=== PATIENT | male | born 1970 | race Caucasian/White ===

== ENCOUNTER → 2021-07-19 14:02 | Outpatient (BNVA) | payer OTHER, SELFPAY | PROVIDERS: PCP Internal Medicine ==

== ENCOUNTER 2021-08-15 15:36 | Outpatient (REF) | payer OTHER, SELFPAY ==
--- NOTE | ~2021-08-15 | US_ITS ---
EXAMINATION: US RETROPERITONEAL LIMITED (RENAL ONLY) CLINICAL INFORMATION: Calculus of kidney. COMPARISON: X-ray abdomen KUB 11/26/2019 and 05/07/2019. Renal ultrasound 11/06/2019 and 04/17/2019. CT abdomen and pelvis 08/17/2019. TECHNIQUE: Real-time imaging of the kidneys. FINDINGS: RIGHT KIDNEY: 12.5 x 6.7 x 4.8 cm (SAG x AP x TRV). The kidney is normal in size, contour, and echogenicity. Renal cortical thickness is normal. There is a 3 mm stone in the midpole. No focal parenchymal lesions or hydronephrosis. LEFT KIDNEY: 13.0 x 6.8 x 5.7 cm (SAG x AP x TRV). The kidney is normal in size, contour, and echogenicity. Renal cortical thickness is normal. There are multiple stones in the lower pole, largest measuring 8 x 4 x 5 mm. There is question of mild calyceal dilatation in the lower pole. No renal mass. US/US renal BI IMPRESSION: Bilateral renal stones, left greater than right.
== END 2021-08-15 15:37 | disposition home or self-care (01) ==
LOC: HO.US 15:36
PROVIDERS: PCP Internal Medicine
DX: N20.0 Calculus of kidney (principal)
CPT/HCPCS: 76775

== ENCOUNTER 2021-12-22 14:21 | Outpatient (REF) | payer OTHER, SELFPAY ==
--- NOTE | ~2021-12-22 | US_ITS ---
EXAMINATION: US RETROPERITONEAL LIMITED (RENAL ONLY) CLINICAL INFORMATION: Calculus of kidney. COMPARISON: US retroperitoneal limited (renal only) 08/15/2021 and 11/06/2019. XR abdomen KUB 11/26/2019 and 05/07/2019. CT abdomen and pelvis without contrast 08/17/2019. TECHNIQUE: Real-time imaging of the kidneys. FINDINGS: RIGHT KIDNEY: 11.4 x 7.0 x 6.0 cm (SAG x AP x TRV). The kidney is normal in size, contour, and echogenicity. Renal cortical thickness is normal. No calculi or focal parenchymal lesions. No hydronephrosis. LEFT KIDNEY: 12.4 x 7.8 x 5.2 cm (SAG x AP x TRV). The kidney is normal in size, contour, and echogenicity. Renal cortical thickness is normal. No focal parenchymal lesions or hydronephrosis. Redemonstration of similar degree of fullness within a lower pole calyx. Redemonstration of at least 3 calculi in the lower pole, largest measuring up to 1.2 cm, not significantly changed. US/US renal BI IMPRESSION: Redemonstration of calculi in the lower pole of the left kidney with similar prominence of a lower pole calyx.
== END 2021-12-22 14:22 | disposition home or self-care (01) ==
LOC: HO.US 14:21
DX: N20.0 Calculus of kidney (principal)
CPT/HCPCS: 76775

== ENCOUNTER 2022-04-26 10:03 | Outpatient (REF) | payer OTHER, BC, SELFPAY | END 2022-04-26 10:04 | disposition home or self-care (01) | LOC: HO.LNP 10:03 | PROVIDERS: PCP Internal Medicine; Visit Provider Surgery | DX: L98.9 Disorder of the skin and subcutaneous tissue, unspecified (principal) | CPT/HCPCS: 11401; 88305 ==

== ENCOUNTER 2022-07-18 08:24 | Day surgery (SDC) | payer BC, SELFPAY ==
--- NOTE | 2022-07-14 12:00 | HO.ANESPROP2 ---
Documented by User: Cony Florentino NP 07/14/22 12:00 HPI - Anesthesia Eval Consult details Narrative: 51yo M for Colonoscopy [facility] Active Problems Active Problems: All Active Problems (Updated 07/14/22 @ 11:48 by Deena Aldana RN) Renal calculi (Acute) Skin lesion (Acute) Renal calculi (Acute) Past Medical History Medical History (Updated 07/14/22 @ 11:48 by Deena Aldana RN) Renal calculi S/P extracorporeal shock wave therapy Skin lesion Family History Family History Mother Ovarian cancer Surgical History Surgical History (Updated 07/14/22 @ 11:48 by Deena Aldana RN) H/O cystoscopy History of excision of lesion (~04/26/22) Social History Social History Alcohol intake: current Alcohol intake frequency: holidays/special occasions only Patient Tobacco Use Status: Never used Tobacco Use of substances other than those prescribed or required for medical reasons: No Are you DNR?: No Advance Directives: No Advance Directives Information Provided: Yes Advance Directives on File: No Meds Allergies Allergy/AdvReac Type Severity Reaction Status Date / Time dander Allergy Unknown Uncoded 07/14/22 11:50 dust mites Allergy Unknown Uncoded 07/14/22 11:50 hay fever Allergy Unknown Uncoded 07/14/22 11:50 Home Medications Medication Instructions Recorded Confirmed Last Taken Type pyridoxine (vitamin B6) 50 mg 1 tab DAILY 07/14/22 07/14/22 Unknown History tablet Exam Exam Date and Time: July 14, 2022 1200 Assessment and Plan Assessment Anesthesia Assessment: Chart Reviewed Documented by User: Roel Cabrera MD 07/18/22 15:52 PMFSH Past Medical History Medical History (Updated 07/14/22 @ 11:48 by Deena Aldana RN) Renal calculi S/P extracorporeal shock wave therapy Skin lesion Family History Family History Mother Ovarian cancer Family history of problems with anesthesia: No Surgical History Surgical History (Updated 07/14/22 @ 11:48 by Deena Aldana RN) H/O cystoscopy History of excision of lesion (~04/26/22) History of Problems with Anesthesia: No Social History Social History Alcohol intake: current Alcohol intake frequency: holidays/special occasions only Patient Tobacco Use Status: Never used Tobacco Use of substances other than those prescribed or required for medical reasons: No Are you DNR?: No Advance Directives: No Advance Directives Information Provided: Yes Advance Directives on File: No Meds Allergies Allergy/AdvReac Type Severity Reaction Status Date / Time dander Allergy Unknown Uncoded 07/14/22 11:50 dust mites Allergy Unknown Uncoded 07/14/22 11:50 hay fever Allergy Unknown Uncoded 07/14/22 11:50 Home Medications Medication Instructions Recorded Confirmed Last Taken Type pyridoxine (vitamin B6) 50 mg 1 tab DAILY 07/14/22 07/14/22 Unknown History tablet Exam Airway Mallampati Class: III TM Dist: >3cm Neck ROM: Full Loose/Missing/Broken Teeth: Yes (chipped front upper ) Heart: S1,S2 Lungs: b/l breath sounds Assessment and Plan Assessment Anesthesia Assessment: Anesthesia Plan Discussed Final Anesthetic Review Family History of Problems with Anesthesia: No History of Problems with Anesthesia: No NPO: Yes ASA Class: III Final Preanesthetic Review: Meds/Allgs Chart Reviewed, Consent Obtained/Reviewed and Anes Risks/Benef Reviewed Patient Risk: Intermediate Procedure Risk: Intermediate Anesthetic Plan Anesthetic Plan: MAC: Disposition: Standard PACU
[2022-07-18 08:33] VITALS: BMI 36.1
[2022-07-18 08:42] VITALS: BP 129/87; PULSE 98; RESP 18; TEMP 36.1; O2SAT 98
[2022-07-18] MEDS: Lactated Ringers 1,000 ML 100 ML IVCONT (08:48)
[2022-07-18 09:54] VITALS: BP 150/91; PULSE 100; RESP 16; TEMP 36.2; O2SAT 94
--- NOTE | 2022-07-18 09:54 | P.BOP_ITS ---
Brief Operative Note Date of Service: 07/18/22 Pre-op diagnosis: screening Post-op diagnosis: same Procedure: colonoscopy Surgeon: Gavino Platt Anesthesia: MAC Was an Proposal Manager Writer used for this Procedure?: No Estimated blood loss (mL): 0 Pathology: none sent Condition: stable Disposition: PACU
[2022-07-18 10:09] VITALS: BP 148/87; PULSE 93; RESP 16; TEMP 36.2; O2SAT 98
--- NOTE | 2022-07-18 10:39 | OP_ITS ---
SURGEON: Gavino Platt MD INDICATIONS: Colon cancer screening. PREOPERATIVE DIAGNOSIS: POSTOPERATIVE DIAGNOSIS: PROCEDURE PERFORMED: Colonoscopy to the terminal ileum. ESTIMATED BLOOD LOSS: COMPLICATIONS: ANESTHESIA: Monitored anesthesia care. ASSISTANTS: SPECIMENS: DESCRIPTION OF PROCEDURE: Date: 07/18/22. A History and Physical was performed. The risks and benefits of the procedure were explained to the patient. Informed consent was obtained. The patient was placed in the left lateral decubitus position. A digital rectal exam was performed and was found to be normal. The Olympus pediatric video colonoscope was introduced into the rectum and advanced to the cecum without difficulty. The cecum was identified by transillumination, palpation, and identification of the ileocecal valve. Examination was performed. The scope was removed. He tolerated the procedure well and was returned to the recovery area in stable condition. FINDINGS: The terminal ileum was normal. The visualized colonic mucosa was normal. The quality of prep was good. No polyps were identified. There were a few scattered diverticula seen in the colon. Retroflexed examination showed small internal hemorrhoids. IMPRESSION: Normal colonoscopy. RECOMMENDATIONS: 1. Follow up as needed. 2. Repeat colonoscopy is recommended in 10 years for average risk individuals. MD ESTRELLA Briceno/MAGGIE / [id number] MTDAnjelica
== END 2022-07-18 10:38 | disposition home or self-care (01) ==
PROVIDERS: PCP Internal Medicine; Visit Provider Internal Medicine Gastroenterology
PROC: 0DJD8ZZ Inspection of Lower Intestinal Tract, Via Natural or Artificial Opening Endoscopic (ICD-10-PCS; CPT 45378; principal; 2022-07-18 09:30)
DX: Z12.11 Encounter for screening for malignant neoplasm of colon (principal); K57.30 Diverticulosis of large intestine without perforation or abscess without bleeding; K64.8 Other hemorrhoids; Z87.442 Personal history of urinary calculi; Z79.899 Other long term (current) drug therapy
CPT/HCPCS: 45378

== ENCOUNTER 2022-08-08 15:49 | Outpatient (REF) | payer BC, SELFPAY ==
--- NOTE | ~2022-08-08 | XR_ITS ---
EXAMINATION: XR ABDOMEN KUB CLINICAL INDICATION: Calculus of kidney COMPARISON: Ultrasound abdomen TECHNIQUE: AP view of the abdomen. FINDINGS: There are several radiopaque density seen in lower pole left kidney largest density is 1.4 cm consistent calculi. There are clusters of small calcifications in the lowest part of the lower pole measuring 1.4 cm well. No radiopaque calculi seen in the right kidney. There is moderate stool in the colon. No gross bony abnormality seen. XR/XR KUB IMPRESSION: 1. Multiple radiopaque calculi lower pole left kidney largest measuring 1.4 cm. 2. There is moderate constipation.
== END 2022-08-08 15:50 | disposition home or self-care (01) ==
LOC: HO.XRAY 15:49
PROVIDERS: PCP Internal Medicine; Visit Provider Nurse Practitioner Family
DX: N20.0 Calculus of kidney (principal)
CPT/HCPCS: 74018

== ENCOUNTER 2022-08-18 15:34 | Outpatient (REF) | payer BC, SELFPAY ==
[2022-08-18 17:42] LABS: Urine Cytology See Pathology rpt
== END 2022-08-18 15:35 | disposition home or self-care (01) ==
LOC: HO.LAB 15:34
PROVIDERS: PCP Internal Medicine; Visit Provider Nurse Practitioner Family
DX: N20.0 Calculus of kidney (principal)
CPT/HCPCS: 88112

== ENCOUNTER 2022-09-25 11:46 | Day surgery (SDC) | payer BC, SELFPAY ==
[2022-09-21 09:14] VITALS: BMI 39.5
--- NOTE | 2022-09-22 13:25 | P.CONAN_ITS ---
Documented by User: Cony Florentino NP 09/22/22 13:26 HPI - Anesthesia Eval Consult details Narrative: 52yo M for Left Cystoscopy, Ureteroroscopy, Retro, Laser,poss stent s/p [place] 06/2022 with MAC PMFSH Active Problems Active Problems: All Active Problems (Updated 09/21/22 @ 09:09 by Neelam Woodward RN) Renal calculi (Acute) Skin lesion (Acute) Renal calculi (Acute) Past Medical History Medical History Renal calculi Skin lesion Family History Family History Mother Ovarian cancer Family history of problems with anesthesia: No Surgical History Surgical History H/O colonoscopy H/O cystoscopy History of excision of lesion (~04/26/22) Hx of lithotripsy History of Problems with Anesthesia: No Social History Social History Alcohol intake: current Alcohol intake frequency: holidays/special occasions only Patient Tobacco Use Status: Never used Tobacco Use of substances other than those prescribed or required for medical reasons: No Are you DNR?: No Advance Directives: No Advance Directives Information Provided: Yes Meds Allergies Allergy/AdvReac Type Severity Reaction Status Date / Time dander Allergy Unknown Uncoded 09/25/22 12:24 dust mites Allergy Unknown Uncoded 09/25/22 12:24 hay fever Allergy Unknown Uncoded 09/25/22 12:24 Exam Exam Date and Time: September 22, 2022 1325 Height,Weight and Vital Signs: Height 5 ft 8 in Weight 117.934 kg Assessment and Plan Assessment Anesthesia Assessment: Chart Reviewed Final Anesthetic Review Family History of Problems with Anesthesia: No History of Problems with Anesthesia: No Documented by User: Dary Celaya MD 09/25/22 13:51 PMFSH Past Medical History Medical History Renal calculi Skin lesion Family History Family History Mother Ovarian cancer Surgical History Surgical History H/O colonoscopy H/O cystoscopy History of excision of lesion (~04/26/22) Hx of lithotripsy Social History Social History Alcohol intake: current Alcohol intake frequency: holidays/special occasions only Patient Tobacco Use Status: Never used Tobacco Use of substances other than those prescribed or required for medical reasons: No Are you DNR?: No Advance Directives: No Advance Directives Information Provided: Yes Meds Allergies Allergy/AdvReac Type Severity Reaction Status Date / Time dander Allergy Unknown Uncoded 09/25/22 12:24 dust mites Allergy Unknown Uncoded 09/25/22 12:24 hay fever Allergy Unknown Uncoded 09/25/22 12:24 Exam Airway Mallampati Class: II TM Dist: >3cm Neck ROM: Full (Largeneck diameter) Heart: RR Lungs: CTA Assessment and Plan Final Anesthetic Review NPO: Yes ASA Class: III (Obesity) Final Preanesthetic Review: No Changes in Pt Med Stat, Meds/Allgs Chart Reviewed, Consent Obtained/Reviewed and Anes Risks/Benef Reviewed Patient Risk: Low Procedure Risk: Low Anesthetic Plan Anesthetic Plan: GA and MAC: Disposition: Standard PACU Documented by User: Funmi Naik MD 09/25/22 14:18 PMFSH Past Medical History Medical History Renal calculi Skin lesion Family History Family History Mother Ovarian cancer Surgical History Surgical History H/O colonoscopy H/O cystoscopy History of excision of lesion (~04/26/22) Hx of lithotripsy Social History Social History Alcohol intake: current Alcohol intake frequency: holidays/special occasions only Patient Tobacco Use Status: Never used Tobacco Use of substances other than those prescribed or required for medical reasons: No Are you DNR?: No Advance Directives: No Advance Directives Information Provided: Yes Meds Allergies Allergy/AdvReac Type Severity Reaction Status Date / Time dander Allergy Unknown Uncoded 09/25/22 12:24 dust mites Allergy Unknown Uncoded 09/25/22 12:24 hay fever Allergy Unknown Uncoded 09/25/22 12:24 Exam Airway Heart: RRR Assessment and Plan Final Anesthetic Review Patient Risk: Intermediate
[2022-09-25] VITALS (10 sets, daily range): BP systolic 116–151; BP diastolic 56–90; PULSE 72–87; RESP 8–18; TEMP 36.1–36.3; O2SAT 82–99
--- NOTE | ~2022-09-25 | FL_ITS ---
EXAMINATION: XR FLUOROSCOPY WITH IMAGES CLINICAL INFORMATION: Urinary tract calculi COMPARISON: KUB 08/08/2022 TECHNIQUE: Fluoroscopy Supervised By: Dr. Randell Dowd. Fluoroscopy Time: 38 seconds. Cumulative Dose: 26.3 mGy. Images: 2. FINDINGS: Final image demonstrates left ureteral stent overlying left renal fossa. No retention of contrast or extravasation. FL/FL guidance in OR IMPRESSION: Fluoroscopy for urologic procedures.
[2022-09-25] MEDS: Lactated Ringers 1,000 ML 100 ML IVCONT (12:41)
--- NOTE | 2022-09-25 14:21 | MHC.SHP ---
Pre-Procedural Eval Section A Date of Service: 09/25/22 The patient is an INPATIENT: No Changes since office visit: No Cold of Flu in the past 2 weeks, No New Medical Problems, No Changes in Medication and No Patient answered all questions The History & Physical has been completed within 30 days and I have reviewed it.: No Section B Chief Complaint: Calculus of kidney Relevant Family History (Specify if Yes): No Relevant Social History: None Present Medications: see Short Stay Collaborative assessment Medical History: Significant History History of Previous Operations: Relevant previous surgery/procedure and date(s) Allergies: Allergies Allergy/AdvReac Type Severity Reaction Status Date / Time dander Allergy Unknown Uncoded 09/25/22 12:24 dust mites Allergy Unknown Uncoded 09/25/22 12:24 hay fever Allergy Unknown Uncoded 09/25/22 12:24 Review of Systems Sugical H&P ROS: Negative: Constitution, Cardiovascular, Respiratory, Neurological, Psychiatric, Hem-Onc, Allergic/Immunologic, Gastrointestinal, Genitourinary, Musculoskeletal, Integumentary, Endocrine and Eyes/Ears/Nose/Throat Exam Surgical H&P Exam: Normal: HEENT, Normal: Heart, Normal: Lungs, Normal: Extremities, Normal: Abdomen, Normal: Skin and Normal: Neurological Plan Diagnosis/Plan: Unchanged (cystoscopy, left retrograde, ureteroscopy, laser, stent) I have reviewed the history and physical and performed a pertinent physical examination on my patient. No changes have occurred unless specified. Time Spent With Patient Time: Total time managing care of this patient today ____ minutes.
--- NOTE | 2022-09-25 16:04 | P.OP_ITS ---
Operative Note Operative Note Date of Service: 09/25/22 Narrative: PreOperative Diagnosis: left renal stones Post Operative Diagnosis: left renal stones Procedure: - cystoscopy, left retrograde - left dilatation of ureteric orifice under fluoroscopy - left ureteroscopy, laser lithotripsy, stone basketing - Modified 22 under% longer than typical - left stent placement Surgeon: Dr Randell Dowd Anesthesia: General Indications for procedure: multiple left renal stones with cluster 1.5 cm in lower pole and secondary areas. Flank pain left side. Procedure: After informed consent was verified patient was brought to the operating placed in supine position. Anesthesia was administered per protocol. Patient was placed in modified dorsal lithotomy position and prepped and draped in a sterile fashion. Safety pause time-out and side of surgery confirmed. Antibiotics confirmed. 22 Nepalese cystoscope was inserted per urethra. Bladder was normal in its entirety. Both ureteric orifices were in normal position. The left ureteric orifice was cannulated and a retrograde examination was performed. filling defects seen in left lower pole. A Sensor guidewire was placed up to the level of the renal pelvis under fluoroscopy. The rigid cystoscope was removed and the inner cannula of ureteric access sheath was used under fluoroscopy to dilate the ureteric orifice. The ureteric access sheath was placed and the inner cannula with access wire removed. The digital flexible ureteral scope was placed. laser of stone occurred. Stone in lower pole was broken into pieces. Primarily dusting. Switching to hammer function. Using a 0 tip basket large chunks were moved and placed in the upper pole. The remnant stone was broken further. It extended in the lower pole split between 2 papillary bodies. Stone was also imbedded into tissue. This took approximately 60 minutes to laser which is 100% longer than typical. We and changed between laser and 0 tip basket. Fragments were removed. After the stone been completely cleared from the left lower pole we went the upper pole and broke the stone pieces up the small fragments. These were also basketed. At the completion of the stone procedure a Sensor wire was placed back into the renal pelvis. The rigid cystoscope was backloaded over the wire and advanced into the bladder. A 6 Nepalese by 28 cm double-J stent was placed into the renal pelvis and bladder under a combination of fluoroscopy and direct visualization. The bladder was emptied. The patient tolerated the procedure well and was extubated in the operating room, and transferred in stable condition to the recovery area. Pathology: Stones Drains: double-J stent
[2022-09-25] MEDS: ondansetron HCL 4 MG/2 ML VIAL IVPUSH (16:15)
[2022-09-25] MEDS: Acetaminophen 1,000 MG/100 ML PIGGYBACK 400 MG IV (16:15)
[2022-09-25] MEDS: Phenazopyridine HCL 100 MG TABLET PO (17:15)
[2022-09-29 23:57] LABS: Stone Source LEFT RENAL STONE
== END 2022-09-25 17:45 | disposition home or self-care (01) ==
PROVIDERS: PCP Internal Medicine; Visit Provider Urology
PROC: (CPT 52356; principal; 2022-09-25 14:10)
DX: N20.0 Calculus of kidney (principal); Z87.442 Personal history of urinary calculi; K59.00 Constipation, unspecified; Z79.899 Other long term (current) drug therapy
CPT/HCPCS: 52356; 52352; 82365; 88300; C1758; C1769; C2617; J0131; J1100; J1885; J1956; J2250; J2370; J2405; J3010; Q9967

== ENCOUNTER → 2022-10-03 12:34 | Outpatient (BNVA) | payer BC, SELFPAY | PROVIDERS: PCP Internal Medicine; Visit Provider Urology | DX: Z13.89 Encounter for screening for other disorder (principal) ==

== ENCOUNTER 2022-11-20 09:43 | Day surgery (SDC) | payer BC, SELFPAY ==
--- NOTE | 2022-11-17 10:05 | HO.ANESPROP2 ---
Documented by User: Cony Florentino NP 11/17/22 10:05 HPI - Anesthesia Eval Consult details Narrative: 52yo M for Left Cystoscopy, Ureteroroscopy, Retro, Laser, poss stent exchange s/p cysto, etc 09/2022 GA-LMA 5 PMFSH Active Problems Active Problems: All Active Problems (Updated 10/25/22 @ 09:28 by Alex Tucker MD) Renal calculi (Acute) Hordeolum externum left eye, unspecified eyelid (Acute) Skin lesion (Acute) Renal calculi (Acute) Past Medical History Medical History Renal calculi Skin lesion Family History Family History Mother Ovarian cancer Family history of problems with anesthesia: No Surgical History Surgical History H/O colonoscopy H/O cystoscopy History of excision of lesion (~04/26/22) Hx of lithotripsy History of Problems with Anesthesia: No Social History Social History Alcohol intake: current Alcohol intake frequency: holidays/special occasions only Patient Tobacco Use Status: Never used Tobacco Use of substances other than those prescribed or required for medical reasons: No Are you DNR?: No Advance Directives: No Advance Directives Information Provided: Yes Meds Allergies Allergy/AdvReac Type Severity Reaction Status Date / Time dander Allergy Runny Nose Uncoded 11/20/22 11:02 dust mites Allergy Runny Nose Uncoded 11/20/22 11:02 hay fever Allergy Runny Nose Uncoded 11/20/22 11:02 Home Medications Medication Instructions Recorded Confirmed Last Taken Type Vitamin D3 PO DAILY 11/20/22 Unknown History magnesium glycinate 100 mg tablet 100 mg PO DAILY 11/20/22 11/20/22 Unknown History pyridoxine (vitamin B6) 50 mg 50 mg PO DAILY 11/20/22 11/20/22 Unknown History tablet Exam Exam Date and Time: November 17, 2022 1005 Assessment and Plan Assessment Anesthesia Assessment: Chart Reviewed Final Anesthetic Review Family History of Problems with Anesthesia: No History of Problems with Anesthesia: No Documented by User: Alee Foley MD 11/20/22 14:32 PMFSH Past Medical History Medical History Renal calculi Skin lesion Family History Family History Mother Ovarian cancer Surgical History Surgical History H/O colonoscopy H/O cystoscopy History of excision of lesion (~04/26/22) Hx of lithotripsy Social History Social History Alcohol intake: current Alcohol intake frequency: holidays/special occasions only Patient Tobacco Use Status: Never used Tobacco Use of substances other than those prescribed or required for medical reasons: No Are you DNR?: No Advance Directives: No Advance Directives Information Provided: Yes Meds Allergies Allergy/AdvReac Type Severity Reaction Status Date / Time dander Allergy Runny Nose Uncoded 11/20/22 11:02 dust mites Allergy Runny Nose Uncoded 11/20/22 11:02 hay fever Allergy Runny Nose Uncoded 11/20/22 11:02 Home Medications Medication Instructions Recorded Confirmed Last Taken Type Vitamin D3 PO DAILY 11/20/22 Unknown History magnesium glycinate 100 mg tablet 100 mg PO DAILY 11/20/22 11/20/22 Unknown History pyridoxine (vitamin B6) 50 mg 50 mg PO DAILY 11/20/22 11/20/22 Unknown History tablet Exam Airway Mallampati Class: III TM Dist: >3cm Neck ROM: Full Heart: rrr Lungs: cta Assessment and Plan Final Anesthetic Review Final Preanesthetic Review: No Changes in Pt Med Stat, Meds/Allgs Chart Reviewed, Consent Obtained/Reviewed and Anes Risks/Benef Reviewed Patient Risk: Intermediate Procedure Risk: Low Anesthetic Plan Anesthetic Plan: GA Disposition: Standard PACU
[2022-11-20] VITALS (7 sets, daily range): BP systolic 98–151; BP diastolic 56–93; PULSE 70–94; RESP 15–18; TEMP 36.2–36.9; O2SAT 96–97; BMI 36.5
--- NOTE | ~2022-11-20 | FL_ITS ---
EXAMINATION: XR FLUOROSCOPY WITH IMAGES CLINICAL INFORMATION: Urinary tract calculi COMPARISON: KUB 08/08/2022 TECHNIQUE: Fluoroscopy Supervised By: Dr. Randell Dowd. Fluoroscopy Time: 7 seconds. Cumulative Dose: 3.98 mGy. Images: 2. FINDINGS: There are calculi again seen overlying the left renal fossa. Ureteral stent is seen overlying the left urinary tract. FL/FL guidance in OR IMPRESSION: Fluoroscopy for urologic procedures.
[2022-11-20] MEDS: Lactated Ringers 1,000 ML 100 ML IVCONT (11:33)
--- NOTE | 2022-11-20 14:29 | MHC.SHP ---
Pre-Procedural Eval Section A Date of Service: 11/20/22 The patient is an INPATIENT: No Changes since office visit: No Cold of Flu in the past 2 weeks, No New Medical Problems, No Changes in Medication and No Patient answered all questions The History & Physical has been completed within 30 days and I have reviewed it.: Yes Section B Chief Complaint: Calculus of kidney Details of Present Illness: Presents for removal of left stent with cystoscopy, ureteroscopy, possible laser Present Medications: see Short Stay Collaborative assessment Medical History: No relevant PMH History of Previous Operations: Relevant previous surgery/procedure and date(s) Allergies: Allergies Allergy/AdvReac Type Severity Reaction Status Date / Time dander Allergy Runny Nose Uncoded 11/20/22 11:02 dust mites Allergy Runny Nose Uncoded 11/20/22 11:02 hay fever Allergy Runny Nose Uncoded 11/20/22 11:02 Review of Systems Sugical H&P ROS: Negative: Constitution, Cardiovascular, Respiratory, Neurological, Psychiatric, Hem-Onc, Allergic/Immunologic, Gastrointestinal, Genitourinary, Musculoskeletal, Integumentary, Endocrine and Eyes/Ears/Nose/Throat Exam Surgical H&P Exam: Normal: HEENT, Normal: Heart, Normal: Lungs, Normal: Extremities, Normal: Abdomen, Normal: Skin and Normal: Neurological Plan Diagnosis/Plan: Unchanged (Cystoscopy, left stent removal, left retrograde, left ureteroscopy with laser lithotripsy) I have reviewed the history and physical and performed a pertinent physical examination on my patient. No changes have occurred unless specified. Time Spent With Patient Time: Total time managing care of this patient today ____ minutes.
--- NOTE | 2022-11-20 16:07 | P.BOP_ITS ---
Brief Operative Note Date of Service: 11/20/22 Pre-op diagnosis: PreOperative Diagnosis: Left renal stones Post Operative Diagnosis: Small left renal stone Procedure: - cystoscopy, left wire placement, left stent removal - left access sheath placement - left ureteroscopy, laser lithotripsy Surgeon: Dr Randell Dowd Anesthesia: General Indications for procedure: Prior procedure with large stone burden. Indwelling left stent. Here for removal of stent and clearance of any remaining fragments Procedure: After informed consent was verified patient was brought to the operating placed in supine position. Anesthesia was administered per protocol. Patient was placed in modified dorsal lithotomy position and prepped and draped in a sterile fashion. Safety pause time-out and side of surgery confirmed. Antibiotics confirmed. 22 English cystoscope was inserted per urethra. Bladder was normal in its entirety. Both ureteric orifices were in normal position. The stent was seen emerging from the left ureteric orifice. A wire was placed alongside the stent up to the level renal pelvis. The stent was removed in grasped and removed. The rigid cystoscope was removed and the inner cannula of ureteric access sheath was used under fluoroscopy to dilate the ureteric orifice. The ureteric access sheath was placed and the inner cannula with access wire removed. The digital flexible ureteral scope was placed. Small stone counted in side pole Otherwise no stones encountered within renal pelvis Using 272 laser fiber small stone was broken. At the completion the procedure decision made to withdrawal wire and ureteric access sheath The bladder was emptied. The patient tolerated the procedure well and was extubated in the operating room, and transferred in stable condition to the recovery area. Pathology: None Drains: None Surgeon: Randell Dowd MD Was an Gas Main And Line Fitter used for this Procedure?: No Estimated blood loss (mL): 0
== END 2022-11-20 16:37 | disposition home or self-care (01) ==
PROVIDERS: PCP Internal Medicine; Visit Provider Urology
PROC: (CPT 52353; principal; 2022-11-20 11:40)
DX: N20.0 Calculus of kidney (principal); Z96.0 Presence of urogenital implants
CPT/HCPCS: 52353; C1758; C1769; C1894; J0131; J1956; J2405; J3010; Q9967

== ENCOUNTER 2023-01-01 14:54 | Outpatient (REF) | payer BC, SELFPAY ==
--- NOTE | ~2023-01-01 | US_ITS ---
EXAMINATION: US RETROPERITONEAL LIMITED (RENAL ONLY) CLINICAL INFORMATION: Calculus of kidney. COMPARISON: X-ray abdomen KUB 08/08/2022. Ultrasound retroperitoneal limited (renal only) 12/22/2021 and 08/15/2021. X-ray abdomen KUB 11/26/2019. CT abdomen and pelvis without contrast 08/17/2019. TECHNIQUE: Real-time imaging of the kidneys. FINDINGS: RIGHT KIDNEY: 11.9 x 6.7 x 6.9 cm (SAG x AP x TRV). The kidney is normal in size, contour, and echogenicity. Renal cortical thickness is normal. No calculi or focal parenchymal lesions. No hydronephrosis. LEFT KIDNEY: 13.5 x 6.9 x 5.9 cm (SAG x AP x TRV). The kidney is normal in size, contour, and echogenicity. Renal cortical thickness is normal. 3 mm nonobstructing lower pole calculus. No hydronephrosis. US/US renal BI IMPRESSION: 3 mm nonobstructing left renal calculus. No right-sided renal calculi. No hydronephrosis of either kidney.
== END 2023-01-01 14:55 | disposition home or self-care (01) ==
LOC: HO.HMGCX 14:54
PROVIDERS: PCP Internal Medicine; Visit Provider Urology
DX: N20.0 Calculus of kidney (principal)
CPT/HCPCS: 76775

== ENCOUNTER 2023-01-12 14:51 | Outpatient (AMB) | payer BC, SELFPAY ==
--- NOTE | 2023-01-12 14:51 | MHC.OFFVIS ---
Intake Intake Visit Reasons: follow up/ US(set) Intake Note: Patient is present for Telephone Urology Med: Tamsulosin, Vitamin B6 Antibiotic Allergy: None Blood Thinner: None Allergies dander Allergy (Uncoded 11/20/22 11:02) Runny Nose dust mites Allergy (Uncoded 11/20/22 11:02) Runny Nose hay fever Allergy (Uncoded 11/20/22 11:02) Runny Nose Medication List - Last Reconciled 01/12/23 by Randell Dowd MD magnesium glycinate 100 mg PO DAILY phenazopyridine (Pyridium) 100 mg PO TID PRN 4 days pyridoxine (vitamin B6) 50 mg PO DAILY tamsulosin 0.4 mg PO BEDTIME 14 days [Vitamin D3 PO DAILY] HPI HPI Comments History of Present Illness Details Luiz is a pleasant male. He is a patient of Dr. Forte. He is seen for following urologic conditions - nephrolithiasis Telemedicine Evaluation 15 min Consultation Doximity Wood Video attempted Discussed recent imaging Minimal stone burden Continue surveillance - +[facility] Nephrolithiasis Initial presentation after KUB showed a large stone Imaging - 08/14 renal ultrasound left lower pole stones Intervention - 12/12 ureteroscopy Composition - calcium oxalate monohydrate Therapeutic plan - ureteroscopy left [facility] Medical History Skin lesion Renal calculi Surgical History Hx of lithotripsy H/O colonoscopy H/O cystoscopy History of excision of lesion (~04/26/22) Family History Mother Ovarian cancer Social History Alcohol intake: current Alcohol intake frequency: holidays/special occasions only Patient Tobacco Use Status: Never used Tobacco Review of Systems Const All systems reviewed & are unremarkable except as noted in HPI and below Reports no additional complaints Resp Reports no additional complaints GI Reports no additional complaints Reports as per HPI Musc Reports no additional complaints Physical Exam Telemedicine evaluation Appropriate responses Regular breathing rate and rhythm HEENT Head: Yes normal to inspection Ears: hearing grossly normal bilaterally Eyes General: appearance normal, both eyes and all related structures Neck Neck: Yes normal visual inspection Chest Chest palpation & inspection: normal inspection of the chest Resp Effort & Inspection: normal respiratory effort and able to speak in complete sentences Assessment & Plan Assessment & Plan (1) Renal calculi: Code(s): N20.0 - Calculus of kidney Plan Three month follow-up nurse practitioner Orders: Orders US renal BI 2 Months N20.0 - Calculus of kidney Patient Instructions: Imaging studies, laboratory and physical exam results were discussed and reviewed in detail. No major barriers to patient understanding were identified. An opportunity to ask questions regarding the treatment plan was provided. All questions were answered. The patient expressed understanding and agreement with the above treatment plan. The patient is aware they should contact our office by phone for worsening of their current condition or the appearance of new urologic symptoms. Compliance is encouraged with any medications and followup testing that is ordered. It is a privilege to participate in the urologic care of your patient. If you have any questions or concerns regarding treatment for the above conditions, or other urologic issues, please do not hesitate to contact me. The office telephone contact is [phone]. This note is constructed using voice recognition software. While every effort has been made to ensure accuracy dispatcher street department errors may have been included. Yours sincerely, Dr Randell Dowd MD, [facility] - Urology Providers of Expert, Compassionate Care for the Genitourinary System Telehealth Telehealth Location of provider rendering services: practice address Location of patient: address on file Patient Identification confirmed using: Name, : Yes Telehealth method: voice only Patient verbally consented to treatment: Yes Patient verbally consented to billing insurance company: Yes Patient informed of any privacy concerns related to visit: Yes Coding Level of Care Code Tele Est Pt Level 3 (77853) Diagnoses Renal calculi N20.0
== END 2023-01-12 16:13 | disposition home or self-care (01) ==
LOC: HO.HUSH 14:51
PROVIDERS: PCP Internal Medicine; Visit Provider Urology
DX: N20.0 Calculus of kidney (principal)
CPT/HCPCS: 99213

== ENCOUNTER → 2023-01-12 14:51 | Outpatient (BNVA) | payer BC, SELFPAY | PROVIDERS: PCP Internal Medicine; Visit Provider Urology ==

== ENCOUNTER 2023-03-12 08:29 | Outpatient (REF) | payer BC, SELFPAY ==
--- NOTE | ~2023-03-12 | US_ITS ---
EXAMINATION: US RETROPERITONEAL LIMITED (RENAL ONLY) CLINICAL INFORMATION: Calculus of kidney. COMPARISON: Bilateral renal ultrasound dated 01/01/2023 and 12/22/2021. KUB dated 08/08/2022 and 11/26/2019. CT abdomen and pelvis without contrast dated 08/17/2019. TECHNIQUE: Real-time imaging of the kidneys. FINDINGS: RIGHT KIDNEY: 12.6 x 6.4 x 5.8 cm (SAG x AP x TRV). The kidney is normal in size, contour, and echogenicity. Renal cortical thickness is normal. No calculi or focal parenchymal lesions. No hydronephrosis. LEFT KIDNEY: 12.9 x 7.4 x 7.2 cm (SAG x AP x TRV). The kidney is normal in size, contour, and echogenicity. Renal cortical thickness is normal. No calculi or focal parenchymal lesions. No hydronephrosis. US/US renal BI IMPRESSION: Normal renal ultrasound.
== END 2023-03-12 08:30 | disposition home or self-care (01) ==
LOC: HO.HMGCX 08:29
PROVIDERS: PCP Internal Medicine; Visit Provider Urology
DX: N20.0 Calculus of kidney (principal)
CPT/HCPCS: 76775

== ENCOUNTER 2024-12-30 14:50 | Outpatient (REF) | payer OTHER, SELFPAY ==
--- NOTE | ~2024-12-30 | XR_ITS ---
CLINICAL HISTORY: M25.511 - Pain in right shoulder Radiographs of the right shoulder, 4 views Comparison: None Findings: No fracture or dislocation. Severe glenohumeral degenerative change with severe joint space narrowing and large osteophytosis. Mild joint space narrowing without osteophytosis of the acromioclavicular joint. Normal acromiohumeral interval. Bone mineralization is normal. No soft tissue swelling. Impression: Severe glenohumeral degenerative change. Radiographs of the left shoulder, 4 views Comparison: None Findings: No fracture or dislocation. Severe glenohumeral degenerative change with severe joint space narrowing and large osteophytosis. Mild joint space narrowing without osteophytosis of the acromioclavicular joint. Normal acromiohumeral interval. Bone mineralization is normal. No soft tissue swelling. Impression: Severe glenohumeral degenerative change. This document has been electronically signed by: Heather Galeana MD on 12/31/2024 21:16:04
== END 2024-12-30 14:51 | disposition home or self-care (01) ==
LOC: HO.XRAY 14:50
PROVIDERS: PCP Physician Assistant; Visit Provider Physician Assistant
DX: E66.01 Morbid (severe) obesity due to excess calories (principal); Z68.41 Body mass index [BMI] 40.0-44.9, adult; R03.0 Elevated blood-pressure reading, without diagnosis of hypertension; L92.0 Granuloma annulare; D22.9 Melanocytic nevi, unspecified; M25.511 Pain in right shoulder; M25.512 Pain in left shoulder; R19.01 Right upper quadrant abdominal swelling, mass and lump
CPT/HCPCS: 73030; 96127

== ENCOUNTER 2024-12-30 14:50 | Outpatient (AMB) | payer OTHER, SELFPAY ==
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
[2024-12-30 14:56] VITALS: BP 140/82; PULSE 85; TEMP 37.1; O2SAT 96; BMI 40.6
[2024-12-30 15:21] VITALS: BP 148/96
--- OUTSIDE RECORDS SUMMARY | 2024-12-30 17:55 | XMS_ITS | Patient Health Record ---
Author Organization [facility] Address [address] [place] [address] Care Team Providers Care Store Specialist Name Role Phone Karthik Forte MD Primary Care Provider Gavino Hill Jr Unavailable Allergies Allergen (clinical drug ingredient) Drug/Non Drug Allergy documented on EMR Reaction Allergy Type Onset Date Status Dust Mites Unknown Allergy Active Dander dander (uncoded) Unknown Allergy Act halle hay fever (uncoded) Unknown Allergy Active Reason For Referral No Information Medications Medication SIG (Take, Route, Frequency, Duration) Notes Start Date End Date Status Vitamin B-6 100 MG 1 tablet Orally Once a day for 30 day(s) Active MiraLax (colon prep) 17 GM/SCOOP mixed with Gatorade or Crystal Light Orally begin at 5:00 p.m. the day before the procedure for 1 day 06/14/2022 Active Immunizations Vaccine Route Administration Date Status Comme nts Influenza Unknown 06/14/2022 Refused Social History Tobacco Use: Social History Observation Description Date Details (start date - stop date) Never Smoker NA - NA Tobacco Use/Smoking Question Answer Notes Patient is a nonsmoker Alcohol Screen Question Answer Notes Did you have a drink contain ing alcohol in the past year? Yes How often did you have a dri nk containing alcohol in the past year? 2 to 4 times a month (2 points) How many drinks did you have on a typical day when you were drinking in the past year? 1 or 2 drinks (0 point) How often did you have 6 or more drinks on one occasion in the past year? Never (0 point) Points 2 Interpretation Negative Problems Problem Type SNOMED Code ICD Code Onset Dates Problem Status W/U Status Risk Notes Problem [id number] Colon cancer screening (Z12.11) Active confirmed Problem [id number] Encounter for other preprocedural examination (Z01.818) Active confirmed Plan Of Treatment Future Test Test Name Order Date COLONOSCOPY 06/14/2022 Insurance Providers Payer Name Payer Address Payer Phone Subscriber Number Group Number Insured Name Patient Relationship to Insured Coverage Start Date Coverage End Date [facility] [address] [place] [address] [id number] SNEHA CORONADO Self - patient is the insured 2 Medical (General) History Medical History History ICD Code Nephrolithiasis Surgical History Surgery Date(Month/Year) kidney stones, cystoscopies with stent placement and removal, multiple ESWL treatments 2018
== END 2024-12-30 15:38 | disposition home or self-care (01) ==
LOC: HO.HMCHD 14:51
PROVIDERS: PCP Internal Medicine; Visit Provider Physician Assistant
DX: E66.01 Morbid (severe) obesity due to excess calories (principal); R03.0 Elevated blood-pressure reading, without diagnosis of hypertension; L92.0 Granuloma annulare; D22.9 Melanocytic nevi, unspecified; M25.511 Pain in right shoulder; M25.512 Pain in left shoulder; R19.01 Right upper quadrant abdominal swelling, mass and lump

== ENCOUNTER → 2024-12-30 15:50 | Outpatient (BNV) | payer OTHER, SELFPAY | PROVIDERS: PCP Physician Assistant; Visit Provider Radiology Diagnostic Radiology | DX: M19.011 Primary osteoarthritis, right shoulder (principal); M19.012 Primary osteoarthritis, left shoulder | CPT/HCPCS: 73030 ==

== ENCOUNTER 2025-01-30 15:02 | Outpatient (REF) | payer OTHER, SELFPAY ==
--- NOTE | ~2025-01-30 | US_ITS ---
EXAMINATION: US ABDOMEN LIMITED HISTORY: R19.01 - Right upper quadrant abdominal swelling, mass and lump TECHNIQUE: Real-time grayscale ultrasound imaging of the right upper quadrant was performed and images were reviewed. COMPARISON: There are no prior studies available for comparison. FINDINGS: Sonographic examination of the palpable abnormality right lumbar region was performed. There are 2 ovoid masses which are slightly hyperechoic when compared to subcutaneous fat. These measure 3.9 x 3.2 x 1.8 cm and 1.4 x 0.8 x 1.3 cm. US/US abdomen limited IMPRESSION: Nonspecific ovoid masses which are hyperechoic to subcutaneous fat and may represent lipomas. Further imaging could be performed with CT if indicated. Electronically signed by: David Lockhart MD 01/30/2025 03:23 PM EDT
--- OUTSIDE RECORDS SUMMARY | 2025-01-30 15:07 | XMS_ITS | Patient Health Record ---
Author Organization [facility] Address [address] [place] [address] Care Team Providers Care Geological Technical Officer Name Role Phone Karthik Forte MD Primary [...] Problem Status W/U Status Risk Notes Problem [id number] Colon cancer screening (Z12.11) Active confirmed Problem [id number] Encounter for other preprocedural examination (Z01.818) Active confirmed Plan Of Treatment Future Test Test Name Order Date COLONOSCOPY 06/14/2022 Insurance Providers Payer Name Payer Address Payer Phone Subscriber Number Group Number Insured Name Patient Relationship to Insured Coverage Start Date Coverage End Date [facility] [address] [place] [address] [id number] SNEHA CORONADO Self - patient is the insured 2 Medical (General) History Medical History History ICD Code Nephrolithiasis Surgical History Surgery Date(Month/Year) kidney stones, cystoscopies with stent placement and removal, multiple ESWL treatments 2018
== END 2025-01-30 15:03 | disposition home or self-care (01) ==
LOC: HO.HMGCX 15:02
PROVIDERS: PCP Physician Assistant; Visit Provider Physician Assistant
DX: R19.01 Right upper quadrant abdominal swelling, mass and lump (principal)
CPT/HCPCS: 76705

== ENCOUNTER → 2025-01-30 15:04 | Outpatient (BNV) | payer OTHER, SELFPAY | PROVIDERS: PCP Physician Assistant; Visit Provider Radiology Diagnostic Radiology | DX: R19.01 Right upper quadrant abdominal swelling, mass and lump (principal) | CPT/HCPCS: 76705 ==

== ENCOUNTER 2025-03-17 08:35 | Outpatient (AMB) | payer OTHER, SELFPAY ==
--- OUTSIDE RECORDS SUMMARY | 2025-03-17 08:46 | XMS_ITS | Patient Health Record ---
Author Organization 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 Name Role Phone Reanna (RETIRED) Karthik RODRÍGUEZ Primary Care Provide r Gavino Regan Jr Unavailable Allergies Allergen (clinical drug ingredient) [...] Problem Status W/U Status Risk Notes Problem [id number] Colon cancer screening (Z12.11) Active confirmed Problem [id number] Encounter for other preprocedural examination (Z01.818) Active confirmed Plan Of Treatment Future Test Test Name Order Date COLONOSCOPY 06/14/2022 Insurance Providers Payer Name Payer Address Payer Phone Subscriber Number Group Number Insured Name Patient Relationship to Insured Coverage Start Date Coverage End Date [facility] [address] [place] [address] [phone] [id number] SNEHA CORONADO Self - patient is the insured 2 Medical (General) History Medical History History ICD Code Nephrolithiasis Surgical History Surgery Date(Month/Year) kidney stones, cystoscopies with stent placement and removal, multiple ESWL treatments 2018
--- NOTE | 2025-03-17 08:50 | A.OFFVIS_ITS ---
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 Patient was referred by his PCP, 01/13/25, and had bilateral shoulder x ray done on 12/31/24. At today's visit he states that he has had bilateral shoulder pain for over 30 years. He states that he has tried acupuncture, at home exercises and at home hot tub. Patient states that since 09/2024 the pain started to flair up as a intense pain that is constant. He added that he has been very active the past few months and with the change in daily activities the pain is unbearable. Allergies dander Allergy (Uncoded 11/20/22 11:02) Runny Nose dust mites Allergy (Uncoded 11/20/22 11:02) Runny Nose hay fever Allergy (Uncoded 11/20/22 11:02) Runny Nose Medication List - Last Reconciled 03/17/25 by Balwinder Mahan MD cholecalciferol (vitamin D3) 250 mcg PO DAILY ferrous fumarate 325 mg PO DAILY magnesium glycinate 100 mg PO DAILY multivitamin 1 tab PO DAILY pyridoxine (vitamin B6) 50 mg PO DAILY [facility] Medical History (Updated 01/12/25 @ 11:21 by SELAM Hogan) Elevated blood pressure reading Morbid obesity Skin lesion Renal calculi Surgical History Hx of lithotripsy H/O colonoscopy (~07/18/22) H/O cystoscopy History of excision of lesion (~04/26/22) Family History (Updated 12/30/24 @ 15:03 by Tomasa Merrill MA) Mother Ovarian cancer Mother No problems noted. Father No problems noted. 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 Cognitive needs: No Hearing needs: No Vision needs: Yes (rx glasses) Physical Exam Vital Signs: BMI result Body Mass Index 38.0 Const Other: Well-nourished well-developed very friendly male awake alert and oriented x3 in no acute distress Extrem Other: Bilateral shoulder examination shows forward flexion to 90 degrees, palpable crepitus with range of motion, pain with range of motion Results Reviewed Results Reviewed: X-rays of the patient's bilateral shoulder show severe glenohumeral joint degenerative changes, subchondral sclerosis, osteophyte formation, no acute bony abnormalities Assessment & Plan Assessment & Plan (1) Bilateral shoulder pain: Code(s): M25.511 - Pain in right shoulder; M25.512 - Pain in left shoulder Category: Medical Plan Mr. Ventura presents with bilateral shoulder pains, left greater than right, due to end-stage glenohumeral joint arthritis. I had a lengthy discussion with the patient regarding the treatment options. At this point he appears to be failing continued non operative treatments. He is interested in proceeding with left total shoulder replacement surgery. Thus, I will have him evaluated by my partner, Dr. Sarmiento. He will continue with his range of motion exercises in the meantime. Feel free to call me at any time should questions regarding his orthopedic management arise. I spent 20 minutes in reviewing the patient's records and imaging studies, seeing the patient and documenting in the medical record. Coding Level of Care Code New Pt Level 3 (57360) Complex EM visit Add On G2211 Diagnoses Bilateral shoulder pain M25.511; M25.512
[2025-03-17 08:55] VITALS: BMI 38.0
== END 2025-03-17 09:16 | disposition home or self-care (01) ==
LOC: HO.HOS 08:35
PROVIDERS: PCP Physician Assistant; Visit Provider Orthopaedic Surgery
DX: M25.511 Pain in right shoulder (principal); M25.512 Pain in left shoulder
CPT/HCPCS: 99203; G2211

== ENCOUNTER 2025-03-24 15:13 | Outpatient (AMB) | payer OTHER, SELFPAY ==
--- NOTE | 2025-03-24 15:30 | A.OFFPC_ITS ---
Vital Signs 03/24/25 15:33 03/24/25 16:04 Height 5 ft 8 in Weight 120.202 kg BMI 40.3 BP 180/104 H 179/96 H Respiration 18 Pulse 66 Pulse Source Pulse Oximeter Temp 98.4 F Temp Source Temporal Artery Scan Pulse Oximetry (%) 98 Oxygen Delivery Method Room Air Intake Visit Reasons: 3 mo. 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 Required: No Accompanied by: Self / Same As Patient Allergies dander Allergy (Uncoded 03/24/25 15:30) Runny Nose dust mites Allergy (Uncoded 03/24/25 15:30) Runny Nose hay fever Allergy (Uncoded 03/24/25 15:30) Runny Nose Medication List - Last Reconciled 03/24/25 by SELAM Hogan cholecalciferol (vitamin D3) 250 mcg PO DAILY ferrous fumarate 325 mg PO DAILY ketoconazole 2% 1 appl topical BID magnesium glycinate 100 mg PO DAILY multivitamin 1 tab PO DAILY pyridoxine (vitamin B6) 50 mg PO DAILY Tobacco use date assessed: 12/30/24 Dental Screening Dental Screen Date: 12/30/24 HPI HPI Comments History of Present Illness Details 54-year-old male presents to the office today for evaluation and to establish care. B/L OA shoulder- pain controlled most of the time, but very painful leadlike at time. Worse with overhead movements and nighttime. Moving forawrd with b/l shoulder replacement with Dr. Sarmiento HTN- not on antihypertensives. He has concerns about the impact of pain and whitecoat htn, however, blood pressures remain significantly elevated even on recheck with blood pressure 179/96. Discussed that is unlikely that he will be able to undergo procedure with blood pressures as high. Morbid obesity-BMI 40-reports exercises limited secondary to his orthopedic concerns. He reports that he is currently fasting for 24-36 hours to help his immune system as well as for weight loss. He does try to decrease carbohydrate intake Health maintenance: Due for screening PSA As colonoscopy 06/2022 with 10 year follow-up advised. Dr. Platt ROS: See HPI EXAM: Constitutional - Awake and Alert, No apparent distress Eyes - PERRL Cardiovascular - S1S2, RRR, No edema Respiratory - Normal lung expansion, Normal respiratory effort, No respiratory d istress, CTA bilaterally GI - palpable moderately soft mobile mass overlying the abdominal wall in the RUQ. Non tender. No overlying erythema Extremities - no calf tenderness bilaterally, no swelling Musculoskeletal - Normal inspection. No bony abnormality. Skin - many darinel of the upper chest with several of atypical shape and multi color. Lasara sized annual lesion that is somewhat scaled Neurological - Alert & oriented x3, 5/5 strength bue Psychological - Appropriate affect [facility] Medical History (Updated 03/24/25 @ 17:34 by SELAM Hogan) Osteoarthritis of shoulders, bilateral HTN (hypertension) Elevated blood pressure reading Morbid obesity Skin lesion Renal calculi Surgical History Hx of lithotripsy H/O colonoscopy (~07/18/22) H/O cystoscopy History of excision of lesion (~04/26/22) Family History (Updated 12/30/24 @ 15:03 by Tomasa Merrill MA) Mother Ovarian cancer Mother No problems noted. Father No problems noted. 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 David Dhillon, Nadine Arthur, Star Monroy and colleagues, with an educational rayo from [employer]. Physical exam (Primary Care) Vital Signs: Last Vital Signs Temp 98.4 F 03/24/25 15:33 Pulse 66 03/24/25 15:33 Resp 18 03/24/25 15:33 BP 179/96 H 03/24/25 16:04 Pulse Ox 98 03/24/25 15:33 Oxygen Delivery Method Room Air 03/24/25 15:33 BMI result Body Mass Index 40.3 Tobacco/Smoking Status: Tobacco use Status Tobacco use date assessed 12/30/24 03/24/25 15:35 Patient Tobacco Use Status Never used Tobacco 03/24/25 15:35 e-Cigarette/Vaping Use Never Used 03/24/25 15:35 Thrive Assessment: Date of Thrive Assessment Date Thrive assessed 12/30/24 03/24/25 15:35 Coding Level of Care Code Est Pt Level 4 (86493) Complex EM visit Add On G2211 Diagnoses Morbid obesity E66.01 HTN (hypertension) I10 Osteoarthritis of shoulders, bilateral M19.011; M19.012 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 Advised to use caution against prolonged fasting. Recommend increased exercise activity for at least 150-300 mg weekly of moderate intensity exercise. Counseled on diet recommendations (2) HTN (hypertension): Code(s): I10 - Essential (primary) hypertension Category: Medical Plan: Significant elevated even on recheck. Prescribed amlodipine 5 mg daily. Advised to purchase blood pressure cuff at home and check pressures and contact the office with several readings (3) Osteoarthritis of shoulders, bilateral: Code(s): M19.011 - Primary osteoarthritis, right shoulder; M19.012 - Primary osteoarthritis, left shoulder Category: Medical Plan: Reviewed orthopedic note. Continue following with Orthopedic surgery. 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 However, given appearance somewhat consistent with tinea corporis, will prescribe ketoconazole however given duration of symptoms and lack of spreading, this is less likely Plan Follow-up in the office in 6 months as well as for preop clearance. He is advised to have labs completed as ordered at last visit Medications: New amlodipine 5 mg PO DAILY 90 tabs 1RF ketoconazole 2% 1 appl topical BID 30 grams 1RF
[2025-03-24 15:33] VITALS: BP 180/104; PULSE 66; RESP 18; TEMP 36.9; O2SAT 98; BMI 40.3
[2025-03-24 16:04] VITALS: BP 179/96
== END 2025-03-24 16:29 | disposition home or self-care (01) ==
LOC: HO.HMCHD 15:14
PROVIDERS: PCP Internal Medicine; Visit Provider Physician Assistant
DX: E66.01 Morbid (severe) obesity due to excess calories (principal); I10 Essential (primary) hypertension; M19.011 Primary osteoarthritis, right shoulder; M19.012 Primary osteoarthritis, left shoulder; L92.0 Granuloma annulare

== ENCOUNTER 2025-03-30 08:32 | Outpatient (AMB) | payer OTHER, SELFPAY ==
[2025-03-30 08:38] VITALS: BMI 40.3
--- NOTE | 2025-03-30 08:38 | MHC.OFFVIS ---
Vital Signs 03/30/25 08:38 Height 5 ft 8 in Weight 265 lb BMI 40.3 Intake Visit Reasons: Discuss LT shoulder Replacement surgery Intake Note: Luiz is a 54 year old right hand dominant male who presents today for a follow up of his Bilateral Shoulder Pain. He was last seen with Dr. Mahan where he reported that the left is worse than the right & was referred to discuss possible Left TSA. No previous treatments BMI: 38, 5'8 250lbs (Specialists: Urology - Calculus of Kidney) Allergies dander Allergy (Uncoded 03/24/25 15:30) Runny Nose dust mites Allergy (Uncoded 03/24/25 15:30) Runny Nose hay fever Allergy (Uncoded 03/24/25 15:30) Runny Nose HPI HPI Discuss LT shoulder Replacement surgery: Details: Luiz is a 54 year old right hand dominant male who presents today for a follow up of his Bilateral Shoulder Pain. He was last seen with Dr. Mahan where he reported that the left is worse than the right & was referred to discuss possible Left TSA. No previous treatments. His range of motion extremely limited and he has difficulty getting through day. 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 States he has difficulty sleeping and difficulty reaching overhead. He is right-hand dominant. His left shoulder is worse in his right. He has done physical therapy in the past he has done acupuncture and currently he modifies his activities and takes NSAIDs at night. He does not want to take NSAIDs all the time because of the history of kidney stones. BMI: 38, 5'8 250lbs (Specialists: Urology - Calculus of Kidney) [facility] Medical History Osteoarthritis of shoulders, bilateral HTN (hypertension) Elevated blood pressure reading Morbid obesity Skin lesion Renal calculi Surgical History Hx of lithotripsy H/O colonoscopy (~07/18/22) H/O cystoscopy History of excision of lesion (~04/26/22) Family History Mother Ovarian cancer Mother No problems noted. Father No problems noted. 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 needs: No Hearing needs: No Vision needs: Yes (rx glasses) Physical Exam Vital Signs: BMI result Body Mass Index 40.3 Const General: cooperative, healthy appearing, no acute distress and well groomed Orientation/consciousness: oriented to person and oriented to place HEENT Head: Yes normal to inspection, Yes normocephalic and Yes atraumatic Eyes General: appearance normal, both eyes and all related structures Alignment and Position: alignment normal Conjunctivae: conjunctivae normal EOM: EOMs intact bilaterally Neck Neck: Yes normal visual inspection and Yes trachea midline Resp Other: No rerpiratory distress Effort & Inspection: normal respiratory effort and able to speak in complete sentences Cardio Other: Palpable radial pulse with no appreciable rythmic abnormalities GI Other: No abdominal distension Back/Spine/Pelvis Cervical Spine: normal cervical lordosis and cervical ROM normal Skin General skin exam: no rashes or lesions noted Neuro General: oriented to person, oriented to place and gait normal Extrem Other: Left shoulder with 10 degrees of external rotation and 90 degrees of abduction, 100 degrees of combined abduction, 110 degrees of forward flexion, internal rotation to hip pocket. Negative empty can. Positive belly press test Results Reviewed Results Reviewed: I personally reviewed relevant radiographs. Severe glenohumeral osteoarthritis left shoulder Assessment & Plan Assessment & Plan (1) Glenohumeral arthritis: Comment: severe Code(s): M19.019 - Primary osteoarthritis, unspecified shoulder Category: Medical Plan: This is a 54-year-old gentleman with severe glenohumeral osteoarthritis. Concerned about his subscap as well as his superior cuff. He describes a history of rotator cuff injury and has a positive belly press test. I do think he is a candidate for shoulder replacement. I do think it is necessary to assess the state of his rotator cuff prior given his age and I ordered an MRI. He will see me back once that is done Orders: Orders MR shoulder LT wo con Today M19.019 - Primary osteoarthritis, unspecified shoulder, M67.912 - Unspecified disorder of synovium and tendon, left shoulder Coding Level of Care Code Est Pt Level 3 (83963) Diagnoses Glenohumeral arthritis M19.019
--- OUTSIDE RECORDS SUMMARY | 2025-03-30 09:32 | XMS_ITS | Patient Health Record ---
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 Name Role Phone Reanna (RETIRED) Karthik RODRÍGUEZ Primary Care Provide r Gavino Regan Jr Unavailable [phone] Allergies Allergen (clinical drug ingredient) Drug/Non Drug [...] Problem Status W/U Status Risk Notes Problem [id number] Colon cancer screening (Z12.11) Active confirmed Problem [id number] Encounter for other preprocedural examination (Z01.818) Active confirmed Plan Of Treatment Future Test Test Name Order Date COLONOSCOPY 06/14/2022 Insurance Providers Payer Name Payer Address Payer Phone Subscriber Number Group Number Insured Name Patient Relationship to Insured Coverage Start Date Coverage End Date [facility] [address] [place] [address] [phone] [id number] SNEHA CORONADO Self - patient is the insured 2 Medical (General) History Medical History History ICD Code Nephrolithiasis Surgical History Surgery Date(Month/Year) kidney stones, cystoscopies with stent placement and removal, multiple ESWL treatments 2018
== END 2025-03-30 09:00 | disposition home or self-care (01) ==
LOC: HO.HOS 08:32
PROVIDERS: PCP Physician Assistant; Visit Provider Orthopaedic Surgery
DX: M19.012 Primary osteoarthritis, left shoulder (principal)
CPT/HCPCS: 99213

== ENCOUNTER → 2025-03-30 08:32 | Outpatient (BNVA) | payer OTHER, SELFPAY | PROVIDERS: PCP Physician Assistant; Visit Provider Orthopaedic Surgery | DX: M19.012 Primary osteoarthritis, left shoulder (principal); Z13.89 Encounter for screening for other disorder ==

== ENCOUNTER → 2025-04-15 07:11 | Outpatient (BNV) | payer OTHER, SELFPAY | PROVIDERS: PCP Physician Assistant; Visit Provider Radiology Diagnostic Radiology | DX: M24.012 Loose body in left shoulder (principal); M19.212 Secondary osteoarthritis, left shoulder | CPT/HCPCS: 73221 ==

== ENCOUNTER 2025-04-15 07:13 | Outpatient (REF) | payer OTHER, SELFPAY ==
--- NOTE | ~2025-04-15 | MR_ITS ---
CLINICAL HISTORY: M19.019 - Primary osteoarthritis, unspecified shoulder MR left shoulder Comparison: CR - XR SHOULDER JANES MIN 2V - 12/30/24 16:06 EDT Findings: No fracture or dislocation of the osseous structures. Mild amount of edema and cystic change in the humeral head, degenerative. Large humeral osteophytosis, degenerative. The acromioclavicular joint is intact with mild joint space narrowing without osteophytosis or subchondral cystic change. Moderate-sized joint effusion with synovitis and intra-articular ossific fragments measuring up to 1.0 cm, degenerative. Trace fluid in the subacromial/subdeltoid bursa. There is increased signal in the supraspinatus, infraspinatus and subscapularis tendons with partial tears. No complete tear or retraction. There is mild muscular atrophy which is most prominent in the infraspinatus tendon. Teres minor tendon is intact, however there is moderate muscular atrophy. The labrum is torn. There is full-thickness glenohumeral chondromalacia. Bicipital labral anchor is intact. The long head of the biceps tendon is intact. There is prominent fluid within the tendon sheath with synovitis. The coracoacromial and coracohumeral ligaments are intact. Cutaneous and subcutaneous tissues are normal. Large humeral osteophyte causes mass effect upon the quadrilateral space. Impression: Severe glenohumeral degenerative change with large humeral osteophytosis. Moderate-sized joint effusion with synovitis. Intra-articular ossific fragments measure up to 1.0 cm, degenerative. Supraspinatus, infraspinatus and subscapularis tendinopathy with partial tears. No complete tear or retraction. Mild muscular atrophy. The teres minor tendon is intact. The large humeral osteophyte causes mass effect upon the quadrilateral space and subsequent atrophy of the teres minor muscle. Tear of the labrum, likely degenerative. Full-thickness glenohumeral chondromalacia, degenerative. Biceps tenosynovitis. This document has been electronically signed by: Heather Galeana MD on 04/17/2025 00:59:42
--- OUTSIDE RECORDS SUMMARY | 2025-04-15 07:15 | XMS_ITS | Patient Health Record ---
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 Name Role Phone Reanna (RETIRED) Karthik RODRÍGUEZ [...] Problem Status W/U Status Risk Notes Problem [id number] Colon cancer screening (Z12.11) Active confirmed Problem [id number] Encounter for other preprocedural examination (Z01.818) Active confirmed Plan Of Treatment Future Test Test Name Order Date COLONOSCOPY 06/14/2022 Insurance Providers Payer Name Payer Address Payer Phone Subscriber Number Group Number Insured Name Patient Relationship to Insured Coverage Start Date Coverage End Date [facility] [address] [place] [address] [id number] SNEHA CORONADO Self - patient is the insured 2 Medical (General) History Medical History History ICD Code Nephrolithiasis Surgical History Surgery Date(Month/Year) kidney stones, cystoscopies with stent placement and removal, multiple ESWL treatments 2018
== END 2025-04-15 07:14 | disposition home or self-care (01) ==
LOC: HO.MRI 07:13
PROVIDERS: PCP Physician Assistant; Visit Provider Orthopaedic Surgery
DX: M19.019 Primary osteoarthritis, unspecified shoulder (principal); M67.912 Unspecified disorder of synovium and tendon, left shoulder
CPT/HCPCS: 73221

== ENCOUNTER 2025-04-27 13:46 | Outpatient (AMB) | payer OTHER, SELFPAY ==
--- NOTE | 2025-04-27 13:57 | A.OFFVIS_ITS ---
Intake Visit Reasons: OV-Left shoulder MRI review Intake Note: Luiz is a 54 year old right hand dominant male who presents today for an MRI Reivew of his left shoulder. He is a candidate for TSA but due to his age we wanted to check his RTC Allergies dander Allergy (Uncoded 03/24/25 15:30) Runny Nose dust mites Allergy (Uncoded 03/24/25 15:30) Runny Nose hay fever Allergy (Uncoded 03/24/25 15:30) Runny Nose HPI HPI OV-Left shoulder MRI review: Details: Luiz is a 54 year old right hand dominant male who presents today for a follow up of his Bilateral Shoulder Pain. He was last seen with Dr. Mahan where he reported that the left is worse than the right & was referred to discuss possible Left TSA. No previous treatments. His range of motion extremely limited and he has difficulty getting through day. 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 States he has difficulty sleeping and difficulty reaching overhead. He is right-hand dominant. His left shoulder is worse in his right. He has done physical therapy in the past he has done acupuncture and currently he modifies his activities and takes NSAIDs at night. He does not want to take NSAIDs all the time because of the history of kidney stones. He has obtained an MRI and comes in today for evaluation. 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 [facility] Medical History Osteoarthritis of shoulders, bilateral HTN (hypertension) Elevated blood pressure reading Morbid obesity Skin lesion Renal calculi Surgical History Hx of lithotripsy H/O colonoscopy (~07/18/22) H/O cystoscopy History of excision of lesion (~04/26/22) Family History Mother Ovarian cancer Mother No problems noted. Father No problems noted. 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 Cognitive needs: No Hearing needs: No Vision needs: Yes (rx glasses) Physical Exam Const General: cooperative, healthy appearing, no acute distress and well groomed Orientation/consciousness: oriented to person and oriented to place HEENT Head: Yes normal to inspection, Yes normocephalic and Yes atraumatic Eyes General: appearance normal, both eyes and all related structures Alignment and Position: alignment normal Conjunctivae: conjunctivae normal EOM: EOMs intact bilaterally Neck Neck: Yes normal visual inspection and Yes trachea midline Resp Other: No rerpiratory distress Effort & Inspection: normal respiratory effort and able to speak in complete sentences Cardio Other: Palpable radial pulse with no appreciable rythmic abnormalities GI Other: No abdominal distension Back/Spine/Pelvis Cervical Spine: normal cervical lordosis and cervical ROM normal Skin General skin exam: no rashes or lesions noted Neuro General: oriented to person, oriented to place and gait normal Extrem Other: Left shoulder with 10 degrees of external rotation and 90 degrees of abduction, 100 degrees of combined abduction, 110 degrees of forward flexion, internal rotation to hip pocket. Negative empty can. Positive belly press test. + crepitus and pain with passive motion. Results Reviewed Results Reviewed: I personally reviewed the MR images. Severe glenohumeral degenerative change with large humeral osteophytosis. Moderate-sized joint effusion with synovitis. Intra-articular ossific fragments measure up to 1.0 cm, degenerative. Supraspinatus, infraspinatus and subscapularis tendinopathy with partial tears. No complete tear or retraction. Mild muscular atrophy. The teres minor tendon is intact. The large humeral osteophyte causes mass effect upon the quadrilateral space and subsequent atrophy of the teres minor muscle. Tear of the labrum, likely degenerative. Full-thickness glenohumeral chondromalacia, degenerative. Biceps tenosynovitis. Assessment & Plan Assessment & Plan (1) Glenohumeral arthritis: Comment: severe Code(s): M19.019 - Primary osteoarthritis, unspecified shoulder Category: Medical Plan: This is a 54 yo wtih severe GH OA of the left shoulder. He has an intact RTC with tendinopathy. He has faield injections and PT and feels that his ability to enjoy his life is compromised. I recommend shoulder arthroplasty. He is not a candidate for a reverse. His RTC is intact with tendinopathy. I recommend lori CHAMORRO. I discussed the non surgical options including PRP, steroid injectins, PT and activity modification. I explaiend the concern for aseptic loosening given his age as well as the risks opf surgery including, but not limited to, infection, fracture, dislocation, pain, incomplete sikhism of motion, need for additional surgery, nerve injury as well as medical complcations associated with surgery. He is actively losing weight and needs to continue to do this in order to further minimize risks associated with surgery. Him BMI is under 40 and is truncal. I answered his questions to the best of my abilities and we will proceed forward. I introduced him to our Nurse Navigator. Coding Level of Care Code Est Pt Level 4 (96459) Diagnoses Glenohumeral arthritis M19.019
--- OUTSIDE RECORDS SUMMARY | 2025-04-27 16:13 | XMS_ITS | Patient Health Record ---
Author Organization [facility] Address [address] [place] [address] Care Team Providers Care Production Line Technician Name Role Phone Reanna (RETIRED) Karthik RODRÍGUEZ [...] Problem Status W/U Status Risk Notes Problem [id number] Colon cancer screening (Z12.11) Active confirmed Problem [id number] Encounter for other preprocedural examination (Z01.818) Active confirmed Plan Of Treatment Future Test Test Name Order Date COLONOSCOPY 06/14/2022 Insurance Providers Payer Name Payer Address Payer Phone Subscriber Number Group Number Insured Name Patient Relationship to Insured Coverage Start Date Coverage End Date [facility] [address] [place] [address] [phone] [id number] SNEHA CORONADO Self - patient is the insured 2 Medical (General) History Medical History History ICD Code Nephrolithiasis Surgical History Surgery Date(Month/Year) kidney stones, cystoscopies with stent placement and removal, multiple ESWL treatments 2018
== END 2025-04-27 14:29 | disposition home or self-care (01) ==
LOC: HO.HOS 13:46
PROVIDERS: PCP Physician Assistant; Visit Provider Orthopaedic Surgery
DX: M19.012 Primary osteoarthritis, left shoulder (principal)
CPT/HCPCS: 99214

== ENCOUNTER 2025-06-13 10:43 | Outpatient (REF) | payer OTHER, SELFPAY ==
--- OUTSIDE RECORDS SUMMARY | 2025-06-13 10:46 | XMS_ITS | Patient Health Record ---
Author Organization [facility] Address [address] [place] [address] Care Team Providers Care Building Construction Engineer Name Role Phone Reanna (RETIRED) Karthik RODRÍGUEZ Primary Care Provide r Gavino Regan Jr Unavailable Allergies Allergen (clinical drug ingredient) Drug/Non Drug Allergy documented on EMR Reaction Allergy Type Onset Date Status Dander dander (uncoded) Unknown Allergy Act halle hay fever (uncoded) Unknown Allergy Active Dust Mites Unknown Allergy Active Reason For Referral No Information Medications Medication SIG (Take, Route, Frequency, Duration) Notes Start Date End Date Status Vitamin B-6 100 MG Tablet 1 tablet Orall y Once a day; Duration: 30 day(s) Active MiraLax (colon prep) 17 GM/SCOOP Powder mixed with Gatorade or Crystal Light Orally begin at 5:00 p.m. the day before the procedure; Duration: 1 day 06/14/2022 Active Immunizations Vaccine Route Administration Date Status Comme nts Influenza Unknown 06/14/2022 Refused Social History Tobacco Use: Social History Observation Description Date Details (start date - stop date) Never Smoker NA - NA Social History Drugs/Alcohol: Social Info Question Answer Notes Alcohol Screen Did you have a drink containing alcohol in the past year? Yes How often did you have a drink containing alcohol in the past year? 2 to 4 times a month (2 points) How many drinks did you have on a typical day when you were drinking in the past year? 1 or 2 drinks (0 point) How often did you have 6 or more drinks on one occasion in the past year? 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 Problems Problem Type SNOMED Code ICD Code Onset Dates Problem Status W/U Status Risk Notes Problem Colon cancer screening (532345721) Colon cancer screening (Z12.11) Active confirmed Problem Pre-procedure evaluation check (567947150) Encounter for other preprocedural examination (Z01.818) Active confirmed Plan Of Treatment Future Test Test Name Order Date COLONOSCOPY 06/14/2022 Insurance Providers Payer Name Payer Address Payer Phone Subscriber Number Group Number Insured Name Patient Relationship to Insured Coverage Start Date Coverage End Date [facility] [address] [place] [address] [id number] SNEHA CORONADO Self - patient is the insured 2 Medical (General) History Medical History History ICD Code Nephrolithiasis Surgical History Surgery Date(Month/Year) kidney stones, cystoscopies with stent placement and removal, multiple ESWL treatments 2018
[2025-06-13 13:39] LABS: Blood Urea Nitrogen 18 mg/dL (9-16); Estimated Glomerular Filt Rate > 60
== END 2025-06-13 10:44 | disposition home or self-care (01) ==
LOC: HO.HMGCLDS 10:43
PROVIDERS: PCP Physician Assistant; Visit Provider Physician Assistant
DX: I10 Essential (primary) hypertension (principal)
CPT/HCPCS: 36415; 82565; 84520

== ENCOUNTER 2025-06-22 15:15 | Outpatient (REF) | payer OTHER, SELFPAY ==
--- NOTE | ~2025-06-22 | CT_ITS ---
EXAMINATION: CT LEFT SHOULDER WITHOUT CONTRAST CLINICAL INFORMATION: Unspecified disorder of synovium. COMPARISON: MRI shoulder 04/15/2025. TECHNIQUE: This CT examination was performed using dose optimization techniques as appropriate, variously including the following: *Automated exposure control *Adjustment of mA and/or kV according to patient size (this includes techniques or standardized protocols for targeted exams where dose is matched to indication/reason for exam; i.e. extremities or head) *Use of iterative reconstruction technique DLP 397 mGy/cm. FINDINGS/ CT/CT shoulder LT wo IV con IMPRESSION: Imaging of left shoulder was performed as per Tournier protocol for Dr. Mc Sarmiento. No interpretation was needed. Electronically signed by: Moe Rodarte MD 06/22/2025 04:36 PM [facility]
== END 2025-06-22 15:16 | disposition home or self-care (01) ==
LOC: HO.CT 15:15
PROVIDERS: PCP Physician Assistant; Visit Provider Physician Assistant
DX: M67.912 Unspecified disorder of synovium and tendon, left shoulder (principal)
CPT/HCPCS: 73200

== ENCOUNTER → 2025-06-22 15:17 | Outpatient (BNV) | payer OTHER, SELFPAY | PROVIDERS: PCP Physician Assistant; Visit Provider Radiology Diagnostic Ultrasound | DX: M67.912 Unspecified disorder of synovium and tendon, left shoulder (principal) | CPT/HCPCS: 73200 ==

== ENCOUNTER 2025-06-23 13:42 | Outpatient (AMB) | payer OTHER, SELFPAY ==
--- NOTE | 2025-06-23 13:44 | MHC.PC.OV ---
Vital Signs 06/23/25 13:50 Height 5 ft 8 in Weight 119.068 kg BMI 39.9 BP 156/90 H Respiration 20 Pulse 96 Pulse Source Pulse Oximeter Temp 98.0 F Temp Source Temporal Artery Scan Pulse Oximetry (%) 98 Oxygen Delivery Method Room Air Intake Visit Reasons: preop-sched for a L TSA w/Dr. Sarmiento 08/18/25, Electrogalvanizing Machine Operator Required: No Accompanied by: Self / Same As Patient Allergies dander Allergy (Uncoded 06/23/25 13:47) Runny Nose dust mites Allergy (Uncoded 06/23/25 13:47) Runny Nose hay fever Allergy (Uncoded 06/23/25 13:47) Runny Nose Tobacco use date assessed: 12/30/24 Dental Screening Dental Screen Date: 12/30/24 HPI HPI Comments History of Present Illness Details 54-year-old male presents to the office today for evaluation and for preoperative clearance and management of chronic conditions B/L OA shoulder- pain controlled most of the time, but very painful leadlike at time. Worse with overhead movements and nighttime. Moving forward with b/l shoulder replacement with Dr. Sarmiento which is scheduled for 07/2026 and is here for preoperative clearance HTN- has had episodes of hypertension multiple times in the office. At last visit he was started on amlodipine 5 mg daily. He does check his blood pressures at home with systolic pressures typically around the 120s and diastolic blood pressures in the 70s. Reports blood pressures are always less than 140/90. He does bring his blood pressure cuff into the office today and is compared against ours and readings are consistent. It appears he does have white coat hypertension and also pressure is likely elevated secondary to pain. We did discuss that an elective procedure may not be performed with blood pressure greater than 140/90 however we will discuss with surgical team regarding white coat hypertension Morbid obesity-BMI 39.9. Continue working on weight loss efforts. Has lost 5 pounds Sleep apnea-reports history of apneic episodes and snoring that have resolved raising up his head when sleeping. However he never underwent sleep study and does appear to have enlarged neck accompanied by morbid obesity Skin tags/keratoses- [facility]. Has multiple lesions on hands Pre-op: No history of cardiovascular disease. No history of asthma or COPD No history of seizures No history of adverse effect with anesthesia No hx diabetes, no insulin Good functional capacity-able to ascend multiple flights of stairs and walk distances without any dyspnea, palpitations, chest pains. EKG shows NSR, rate 90. No AV johna blocks. No significant ST/T wave abnormality Health maintenance: Due for screening PSA As colonoscopy 06/2022 with 10 year follow-up advised. Dr. Platt ROS: See HPI EXAM: Constitutional - Awake and Alert, No apparent distress Eyes - PERRL Cardiovascular - S1S2, RRR, No edema Respiratory - Normal lung expansion, Normal respiratory effort, No respiratory distress, CTA bilaterally GI - palpable moderately soft mobile mass overlying the abdominal wall in the RUQ. Non tender. No overlying erythema Extremities - no calf tenderness bilaterally, no swelling Musculoskeletal - Normal inspection. No bony abnormality. Skin - many darinel of the upper chest with several of atypical shape and multi color. [place] sized annual lesion that is somewhat scaled Neurological - Alert & oriented x3, 5/5 strength bue Psychological - Appropriate affect [facility] Medical History Osteoarthritis of shoulders, bilateral HTN (hypertension) Elevated blood pressure reading Morbid obesity Skin lesion Renal calculi Surgical History Hx of lithotripsy H/O colonoscopy (~07/18/22) H/O cystoscopy History of excision of lesion (~04/26/22) Family History Mother Ovarian cancer Mother No problems noted. Father No problems noted. 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 How many drinks containing alcohol do you have on a typical day when you are drinking?: 1 or 2 3. How often do you have six or more drinks on one occasion?: Never Total Score: 0 CHANCE-7 AMB Questionnaire CHANCE-7 Date CHANCE - 7 assessed: 12/30/24 Source: Developed by Drs. David Dhillon, Nadine Arthur, Star Monroy and colleagues, with an educational rayo from [employer]. Physical exam (Primary Care) Vital Signs: Last Vital Signs Temp 98.0 F 06/23/25 13:50 Pulse 96 06/23/25 13:50 Resp 20 06/23/25 13:50 BP 156/90 H 06/23/25 13:50 Pulse Ox 98 06/23/25 13:50 Oxygen Delivery Method Room Air 06/23/25 13:50 BMI result Body Mass Index 39.9 Tobacco/Smoking Status: Tobacco use Status Tobacco use date assessed 12/30/24 06/23/25 13:45 Patient Tobacco Use Status Never used Tobacco 06/23/25 13:45 e-Cigarette/Vaping Use Never Used 06/23/25 13:45 Thrive Assessment: Date of Thrive Assessment Date Thrive assessed 12/30/24 06/23/25 13:45 Office Procedures EKG 96502-[id number], Complete Coding Level of Care Code Est Pt Level 4 (79300) Complex visit Add On G2211 Diagnoses Preoperative clearance Z01.818 HTN (hypertension) I10 Morbid obesity E66.01 Glenohumeral arthritis M19.019 Sleep apnea G47.30 CPT Codes EKG - CPT: 13128-[id number], Complete ([id number]) Assessment & Plan Assessment & Plan (1) Preoperative clearance: Code(s): Z01.818 - Encounter for other preprocedural examination Category: Medical Plan: RCRI score 0, 0.5% risk of major cardiac event EKG nonischemic, normal rate/rhythm, no blocks Good functional capacity *Suspected though undiagnosed VIOLET- Home sleep study ordered. Proceed with appropriate anesthesia precautions Has white coat HTN. Monitor readings in office match our manual cuff. BPs elevated in office. Readings normal at home. Proceed with close blood pressure monitoring. He will continue monitoring and logging at home. Medication adjustments if BPs >140/90 Medically cleared for bilateral TSA on 08/18 (2) HTN (hypertension): Code(s): I10 - Essential (primary) hypertension Category: Medical Plan: Uncontrolled in office, but home monitor values with SBP 120s-130s. Home cuff matching readings in office. Will continue on current therapies. He will returnin one month for recheck (3) Morbid obesity: Code(s): E66.01 - Morbid (severe) obesity due to excess calories Category: Medical Plan: Continue with weight loss efforts. Increase protein, fruits, vegetable. Limit refined sugars and highly processed foods. Exercise 150minutes weekly (4) Glenohumeral arthritis: Comment: severe Code(s): M19.019 - Primary osteoarthritis, unspecified shoulder Category: Medical Plan: Proceed with replacement surgery as above (5) Sleep apnea: Code(s): G47.30 - Sleep apnea, unspecified Category: Medical Plan: Sleep study ordered. Plan Follow up in 1 month Orders: Orders RT home sleep study 06/23/25 G47.30 - Sleep apnea, unspecified
[2025-06-23 13:50] VITALS: BP 156/90; PULSE 96; RESP 20; TEMP 36.7; O2SAT 98; BMI 39.9
== END 2025-06-23 14:43 | disposition home or self-care (01) ==
LOC: HO.HMCHD 13:43
PROVIDERS: PCP Physician Assistant; Visit Provider Physician Assistant
DX: Z01.818 Encounter for other preprocedural examination (principal); I10 Essential (primary) hypertension; E66.01 Morbid (severe) obesity due to excess calories; M19.019 Primary osteoarthritis, unspecified shoulder; G47.30 Sleep apnea, unspecified

== ENCOUNTER → 2025-06-23 13:42 | Outpatient (BNVA) | payer OTHER, SELFPAY | PROVIDERS: PCP Physician Assistant; Visit Provider Physician Assistant | DX: Z01.818 Encounter for other preprocedural examination (principal); I10 Essential (primary) hypertension; E66.01 Morbid (severe) obesity due to excess calories; Z68.39 Body mass index [BMI] 39.0-39.9, adult; G47.30 Sleep apnea, unspecified; M19.011 Primary osteoarthritis, right shoulder; M19.012 Primary osteoarthritis, left shoulder; L91.8 Other hypertrophic disorders of the skin | CPT/HCPCS: 93005 ==

== ENCOUNTER → 2025-07-14 10:37 | Outpatient (BNVA) | payer OTHER, SELFPAY | PROVIDERS: PCP Physician Assistant | DX: Z01.818 Encounter for other preprocedural examination (principal) ==

== ENCOUNTER → 2025-07-21 08:06 | Outpatient (REF) | payer OTHER, SELFPAY ==
--- OUTSIDE RECORDS SUMMARY | 2025-07-21 09:35 | XMS_ITS | Patient Health Record ---
Author Organization [facility] Address [address] [place] [address] Care Team Providers Care Hangar Attendant Name Role Phone Reanna (RETIRED) Karthik RODRÍGUEZ [...] Status Risk Notes Problem Colon cancer screening (705907455) Colon cancer screening (Z12.11) Active confirmed Problem Pre-procedure evaluation check (295292762) Encounter for other preprocedural examination (Z01.818) Active confirmed Plan Of Treatment Future Test Test Name Order Date COLONOSCOPY 06/14/2022 Insurance Providers Payer Name Payer Address Payer Phone Subscriber Number Group Number Insured Name Patient Relationship to Insured Coverage Start Date Coverage End Date [facility] [address] [place] [address] [phone] [id number] SNEHA CORONADO Self - patient is the insured 2 Medical (General) History Medical History History ICD Code Nephrolithiasis Surgical History Surgery Date(Month/Year) kidney stones, cystoscopies with stent placement and removal, multiple ESWL treatments 2018
== END ==
LOC: HO.SL 08:06
PROVIDERS: PCP Physician Assistant; Visit Provider Physician Assistant
DX: G47.30 Sleep apnea, unspecified (principal)
CPT/HCPCS: 95806

== ENCOUNTER → 2025-07-22 08:21 | Outpatient (BNV) | payer OTHER, SELFPAY | PROVIDERS: PCP Physician Assistant; Visit Provider Psychiatry & Neurology Neurology | DX: G47.33 Obstructive sleep apnea (adult) (pediatric) (principal) | CPT/HCPCS: 95806 ==